=== PATIENT | male | born 1990 | race Hispanic/Latino ===

== ENCOUNTER 2024-03-21 16:44 | Emergency (ER) | payer SELFPAY ==
[~2024-03-21] VITALS: Ht 172.7 cm; Wt 77.1 kg
[~2024-03-21 16:44] MED LIST: ACET1TAB12 PO
[2024-03-21] MEDS: 0.9%NACL 1000ML 1,000 ML IV ONE (17:40)
[2024-03-21] MEDS: ketOROlac 30MG VIAL (30MG/ML) IVP ONE (17:40)
[2024-03-21] MEDS: ondanSETRON 4MG INJ IVP ONE (17:41)
[2024-03-21 17:47] LABS: BASOPHILS # (AUTO) 0.04 K/uL (0.00-0.20); BASOPHILS % (AUTO) 0.4 % (0.0-5.0); EOSINOPHILS % (AUTO) 0.9 % (0.0-8.0); IMMATURE GRANULOCYTE ABSOLUTE 0.04 K/uL (0-1); LYMPHOCYTES # (AUTO) 3.8 K/uL (1.0-4.8); LYMPHOCYTES % (AUTO) 34.6 % (21.0-51.0); MEAN CORPUSCULAR HEMOGLOBIN 27.5 pg (27.0-33.0); MEAN CORPUSCULAR HGB CONC 32.4 g/dL (32.0-36.0); MEAN CORPUSCULAR VOLUME 84.7 fL (79-99); MONOCYTES # (AUTO) 0.6 K/uL (0.1-1.0); MONOCYTES % (AUTO) 5.4 % (3.0-13.0); NEUTROPHILS # (AUTO) 6.4 K/uL (1.8-7.7); NEUTROPHILS % (AUTO) 58.3 % (40.0-77.0); PLATELET COUNT (AUTO) 367 K/uL (130-400); RED BLOOD CELL COUNT(AUTO) 5.31 MIL/uL (4.50-6.20); RED CELL DISTRIBUTION WIDTH 13.2 % (11.0-15.5); WHITE BLOOD COUNT (AUTO) 10.9 K/uL (4.8-10.8)
[2024-03-21 18:02] LABS: CREATININE 1.1 mg/dL (0.5-1.3); POTASSIUM 3.2 mmol/L (3.5-5.1)
[2024-03-21] MEDS ORDERED: IBUP-2077 PO (18:59)
[2024-03-21] MEDS ORDERED: TAMS-1 PO (18:59)
[2024-03-21] MEDS: ibuPROFEN 800 MG TAB PO ONE (19:19)
[2024-03-21] MEDS: PoTASSium BIcarbonate/CIT AC 25 MEQ TABLET.EFF PO ONE (19:19)
[2024-03-21] MEDS: tamSULOsin HCL 0.4 MG CAP.ER.24H PO ONE (19:19)
[2024-03-21 19:43] VITALS: BP 136/76; PULSE 80; RESP 16; TEMP 98.3; O2SAT 99
== END 2024-03-21 19:52 | disposition home or self-care (01) ==
LOC: EDH 16:44
DX: N13.2 Hydronephrosis with renal and ureteral calculous obstruction (principal); E87.6 Hypokalemia; Z79.899 Other long term (current) drug therapy; Z87.442 Personal history of urinary calculi
CPT/HCPCS: 99285; 74176; 96374; 96361; 96375; 80048; 85025; 36415; J7030; J2405; J1885